=== PATIENT | female | born 1965 | race Caucasian/White ===

== ENCOUNTER 2023-05-12 04:47 | Emergency (ER) | payer OTHER, SELFPAY ==
[2023-05-12] VITALS (8 sets, daily range): BP systolic 135–196; BP diastolic 70–111; PULSE 75–87; RESP 14–22; TEMP 36.6–37.1; O2SAT 97–100; BMI 30.2
--- NOTE | 2023-05-12 | ECG_ITS ---
Test Reason : CP Blood Pressure : / mmHG Vent. Rate : 085 BPM Atrial Rate : 085 BPM P-R Int : 154 ms QRS Dur : 088 ms QT Int : 390 ms P-R-T Axes : 048 027 058 degrees QTc Int : 464 ms Normal sinus rhythm Normal ECG When compared with ECG of 07-JUN-2009 18:13, No significant change was found Referred By: Generic ED Physician Electronically Signed By:Daniel Moreno
--- NOTE | ~2023-05-12 | CT_ITS ---
EXAMINATION: CT ANGIOGRAM OF THE CHEST WITH AND WITHOUT CONTRAST (CT PULMONARY ANGIOGRAM FOR PE) CLINICAL INFORMATION: Reason for Exam chest pain COMPARISON: None available. TECHNIQUE: Prior to contrast administration, noncontrast localization images were obtained. Subsequently, multidetector volumetric imaging was performed from the thoracic inlet to below the diaphragms following the administration of 80 mL Omnipaque 350 intravenous contrast. No contrast reaction reported Sagittal, coronal, and MIP oblique sagittal reformatted images were obtained on the CT workstation, uploaded to PACS, and reviewed. This CT examination was performed using dose optimization techniques as appropriate, variously including the following: *Automated exposure control *Adjustment of mA and/or kV according to patient size (this includes techniques or standardized protocols for targeted exams where dose is matched to indication/reason for exam; i.e. extremities or head) *Use of iterative reconstruction technique Total exam dose-length product 123.9 mGy-cm FINDINGS: QUALITY OF STUDY/CONTRAST BOLUS: Satisfactory. PULMONARY ARTERIES: No central or segmental pulmonary emboli. THORACIC AORTA: No aneurysm. No aortic dissection or periaortic collection. Evaluation of the ascending aorta mildly limited due to motion artifact. LUNG: Mild volume loss and diffuse patchy opacities in the dependent portion of both lower lobes seen, most consistent with atelectasis. Subtle superimposed infectious infiltrate would be difficult to exclude but is felt to be less likely. No focal dense consolidation, nodules or masses. PLEURA: No pleural effusion or pneumothorax. MEDIASTINUM: Normal heart size. No pericardial effusion. No hilar or mediastinal lymphadenopathy. No evidence of septal bowing or right heart strain. CORONARY ARTERY CALCIFICATION: None visualized on this study. CHEST WALL/AXILLA: No axillary or internal mammary lymphadenopathy. OSSEOUS STRUCTURES: No acute or suspicious osseous abnormality. Small sclerotic bone island in the tip of the right scapula. Mild vertebral spondylosis in mid and lower thoracic spine. UPPER ABDOMEN: Unremarkable. No reflux of contrast into the hepatic veins to suggest elevated right heart pressures. CT/CT angio chest PE protocol IMPRESSION: * No evidence of pulmonary embolism. * Mild volume loss and diffuse patchy opacities in the dependent portion of both lower lobes, most consistent with atelectasis. Subtle superimposed infectious infiltrate would be difficult to exclude but is felt to be less likely. VTE: negative.
--- NOTE | ~2023-05-12 | XR_ITS ---
EXAMINATION: XR CHEST CLINICAL INFORMATION: Chest pain COMPARISON: 06/07/2009 TECHNIQUE: Frontal view of the chest was obtained. FINDINGS: Lung volumes are symmetric. No focal consolidation is seen. No evidence of pneumothorax, pleural effusion, or pulmonary edema. Cardiac size appears within normal limits. There is slightly increased prominence of the aortic arch compared to prior, which could be due to patient rotation. No acute osseous findings are seen. XR/XR chest 1V IMPRESSION: Slightly increased prominence of the aortic arch compared to prior, which could be accentuated due to patient rotation. Further assessment with a PA radiograph is recommended. No acute pulmonary findings.
[2023-05-12 05:37] LABS: Hematocrit 36.9 % (37.0-47.0); Hemoglobin 11.5 g/dl (12.0-16.0); Mean Corpuscular HGB Conc 31.2 g/dl (31.0-35.0); Mean Corpuscular Hemoglobin 24.7 pg (27.0-33.0); Mean Corpuscular Volume 79.2 fL (80.0-98.0); Platelet Count 168 X10*3/uL (160-400); Red Blood Count 4.66 X10*6/uL (4.20-5.50)
[2023-05-12 05:38] LABS: WBC ABN SCTR FOR CBC 1
[2023-05-12 05:39] LABS: White Blood Count 12.5 X10*3/uL (4.8-10.8)
[2023-05-12 05:50] LABS: Alanine Aminotransferase 14 U/L (0-31); Alkaline Phosphatase 116 U/L (39-117); Anion Gap 14 (12-20); Aspartate Amino Transferase 27 U/L (5-31); Bilirubin Total 0.2 mg/dL (0.0-1.0); Blood Urea Nitrogen 32 mg/dL (9-16); Calcium 9.5 mg/dL (8.4-10.2); Carbon Dioxide 19 mmol/L (22-29); Chloride 109 mmol/L (96-108); Creatinine Clr Calc Pharmacy 33.3; Estimated Glomerular Filt Rate 30; Glucose Random 106 mg/dL (60-115); Sodium 138 mmol/L (135-145); Total Protein 8.8 g/dL (6.5-8.0)
[2023-05-12 05:55] LABS: Troponin-I High Sensitivity 3.8 ng/L (<3.5-17.0)
[2023-05-12 06:09] LABS: Band Neutrophils Percent 1 % (3-5); Eosinophils Absolute Manual 0.1 X10*3/uL (0.0-0.4); Eosinophils Percent Manual 1 % (0-4); Lymphocytes Absolute Manual 2.5 X10*3/uL (1.2-4.9); Lymphocytes Percent Manual 20 % (20-40); Metamyelocytes Absolute 0.1 X10*3/uL; Metamyelocytes Percent 1 %; Monocytes Absolute Manual 0.9 X10*3/uL (0.1-1.2); Monocytes Percent Manual 7 % (2-11); Neutrophils Absolute Manual 8.9 X10*3/uL (2.0-8.3); Neutrophils Percent Manual 70 % (45-73)
[2023-05-12 06:10] LABS: Hypochromasia 2+ (15-30) /OIF; Large Platelet PRESENT; Platelet Estimate NORMAL (NORMAL); Platelet Morphology Comment NOTED; RBC Morphology NORMAL; Rouleau PRESENT; Target Cells 1+ (5-14) /OIF; Toxic Vacuolation PRESENT
--- NOTE | 2023-05-12 06:21 | ED.CHESTPAIN ---
HPI - Chest Pain General Chief Complaint: Chest Pain Stated Complaint: CP Time Seen by Provider: 05/12/23 06:32 Source: patient, family and RN notes reviewed Mode of arrival: ambulatory Limitations: no limitations History of Present Illness HPI narrative: This is a 57-year-old female, with a history of Sjogren's disease and hypertension, presenting to the emergency department with complaints of acute left-sided chest pain since 4:00 a.m. this morning. Patient states that she woke up this morning with left-sided chest pain that radiated to her jaw as well as her back. She states that the pain has been constant since feeling initially. She took 1 baby aspirin prior to arrival which provided her with some relief. She also endorses some mild shortness of breath. Pain worsens with deep inspiration. Denies any fevers, chills, cough, abdominal pain, nausea, vomiting or diarrhea. She was at a wedding last night and had spicy food. She denies any recent travel, surgeries, hospitalizations. No other complaints or concerns at this time. MD complaint: chest pain Onset (ago): hour(s) Timing of current episode: constant Prior episodes: No Onset: during rest Pain location: left chest Pain radiation: back and jaw/teeth Severity: moderate Quality: aching and heaviness Relieving factors: nothing Exacerbating factors: nothing Associated symptoms: dyspnea Treatment prior to arrival: aspirin Risk Factors Coronary artery disease risk factors: hypertension Thoracic aortic dissection risk factors: none Related Data On Oral Contraceptives: No Allergies Allergy/AdvReac Type Severity Reaction Status Date / Time No Known Allergies Allergy Verified 05/12/23 04:55 Review of Systems Review of Systems: Yes all other systems are reviewed and are negative Constitutional: Constitutional: Reports as per [facility] Past Medical History Attestation statement: The following information was validated with the patient. Social History Social History Smoked in Last 30 Days: No Use of substances other than those prescribed or required for medical reasons: No Advance Directives: No Advance Directives Information Provided: No Patient : No Physical Exam Vital Signs: Vital Signs: Last Vital Signs Temp 97.8 F 05/12/23 12:54 Pulse 76 05/12/23 12:54 Resp 16 05/12/23 12:54 BP 142/82 H 05/12/23 12:54 Pulse Ox 97 05/12/23 12:54 O2 Del Method Room Air 05/12/23 12:54 BMI result Body Mass Index 30.2 Const: General: cooperative, comfortable and no acute distress Orientation/consciousness: patient oriented x3 Limitations: no limitations HEENT: Head: Yes normal to inspection, Yes normocephalic and Yes atraumatic Ears: hearing grossly normal bilaterally General nose exam: Normal external nose present Face and sinus: Yes normal facial exam Mouth: Normal oral and palatal mucosa present, oropharynx normal and moist mucous membranes Throat: Yes posterior oropharynx normal Eyes: General: appearance normal, both eyes and all related structures Eyelids: Yes eyelids normal Conjunctivae: conjunctivae normal Sclerae: sclerae normal Pupils: Equal, round and reactive pupils present EOM: EOMs intact bilaterally Neck: Neck: Yes normal visual inspection, Yes full ROM and Yes no lymphadenopathy Lymphatic: no lymphadenopathy noted Chest: Chest palpation & inspection: normal inspection of the chest Resp: Effort & Inspection: normal respiratory effort and able to speak in complete sentences Auscultation: clear to auscultation bilaterally, no crackles, no rales, no rhonchi and no wheezes Cardio: Rate: regular rate Rhythm: regular rhythm Heart sounds: S1 normal heart sound present and S2 normal heart sound present GI: Inspection: Yes normal to inspection Skin: General skin exam: no rashes or lesions noted Trauma: no lacerations or abrasions Wounds: no wounds Neuro: General: patient oriented x3 and moves all extremities Cranial nerves: Yes Equal, round and reactive pupils present Extrem: General: Yes normal to inspection Right upper extremity: normal to inspection Left upper extremity: normal to inspection Right lower extremity: normal to inspection Left lower extremity: normal to inspection Course Reevaluation(s) Reevaluation #1: CTA returns revealing mild volume loss and diffuse patchy opacities in the dependent portion of both lower lobes, most consistent with atelectasis. Subtle superimposed infectious infiltrate be difficult to exclude but is felt to be less likely. Time: 10:04 Reevaluation #2: 2nd troponin returns, is flat. Given creatinine of 1.7. Patient also with CBC with differential with rouleaux, target cells. I discussed abnormal morphology with my attending physician, Dr. Colon. Recommending outpatient follow-up however will repeat bmp to ensure that creatinine is improving. I discussed workup with patient as well as daughter at bedside. Patient reports that she previously was told that she had abnormal findings in her red blood cell in the past approximately 15 years ago. She does not see a table runner at this point. Time: 11:06 Reevaluation #3: Creatinine improved to 1.35, GFR 40. This has since improved since patient has been given IV fluids. Discussed workup with patient, cardiac workup is unremarkable today. We will give referral to Nephrology as well as Hematology for follow-up. Discussed strict return precautions. Time: 12:38 Medications Administered Discontinued Medications Generic Name Dose Route Start Last Admin Trade Name Freanisha PRN Reason Stop Dose Admin Acetaminophen 650 mg 05/12/23 07:16 05/12/23 07:22 Acetaminophen 325 Mg Tablet PO 05/12/23 07:17 650 mg ONCE ONE Administration Sodium Chloride 1,000 mls @ 250 mls/hr 05/12/23 06:22 05/12/23 08:27 Ns IV 05/12/23 10:21 Infused .Q4H STA Infusion Iohexol 65 ml 05/12/23 08:39 05/12/23 08:40 Iohexol 350 Mg/Ml 100 Ml Infus..Btl IV 05/12/23 08:40 65 ml ONCE ONE Administration Losartan Potassium 50 mg 05/12/23 06:24 05/12/23 06:33 Losartan Potassium 50 Mg Tablet PO 05/12/23 06:25 50 mg ONCE ONE Administration Protocol Medical Decision Making Medical Decision Making MDM Narrative: This is a 57-year-old female presenting to the emergency department with complaints of left-sided chest pain which started at 4:00 a.m. this morning. She states that the left-sided chest pain radiates into her jaw and into her back. The pain woke her up from sleep. Upon my assessment, blood pressure has improved to 150 9/88. Patient is comfortable, in no acute distress. She does endorse some mild shortness of breath. CBC and chemistry as well as troponin EKG chest x-ray was ordered prior to my assessment. Patient has slight leukocytosis at 12.5, with a microcytic anemia she also has rouleaux, target cells, present. Chemistry revealing a creatinine of 1.74, with a BUN of 32. She is being medicated with IV fluids. Per daughter this has been worked up outpatient, and will be seeing a data consultant in the coming weeks. Chest x-ray unremarkable. I discussed this presentation with my attending physician, Dr. Barbour, and given findings, will order CTA of the chest to rule out PE/dissection. Patient does have an elevated creatinine of 1.74, she is currently being hydrated. Given circumstances may be life-threatening therefore a CTA is warranted. Differential Diagnosis Differential Diagnoses: The differential diagnosis associated with the presentation includes PE, dissection, ACS, pneumonia, URI, covid, penumothorax Admission/Observation Consideration of admission/observation: Escalation of care including admission/observation considered Patient would have been admitted to the hospital had her work up had any findings where hospital admission was appropriate and her clinical presentation warranted hospital admission. Lab Data MDM Lab Attestation statement: I reviewed the patient's lab results. Mild leukocytosis, Microcytic anemia noted with a H&H of 11.5/36.9, rouleaux formations, target cells present (see course), Creatinine 1.74 > improved to 1.35; GFR 30 > improved to 40. 05/12/23 05:25 05/12/23 11:14 Labs: Lab Results 05/12/23 05/12/23 05/12/23 Range/Units 05:25 07:03 09:22 WBC 12.5 H (4.8-10.8) X10*3/uL RBC 4.66 (4.20-5.50) X10*6/uL Hgb 11.5 L (12.0-16.0) g/dl Hct 36.9 L (37.0-47.0) % MCV 79.2 L (80.0-98.0) fL MCH 24.7 L (27.0-33.0) pg MCHC 31.2 (31.0-35.0) g/dl RDW 16.0 (11.0-16.0) % Plt Count 168 (160-400) X10*3/uL MPV Not Reportable Immature Gran % (Auto) Cancelled Neut % (Auto) Cancelled Lymph % (Auto) Cancelled [place] % (Auto) Cancelled Eos % (Auto) Cancelled Baso % (Auto) Cancelled Lymph # (Auto) Cancelled [place] # (Auto) Cancelled Eos # (Auto) Cancelled Baso # (Auto) Cancelled Abs Immat Gran (auto) Cancelled Absolute Neuts (auto) Cancelled Absolute Nucleated RBC 0.000 (0.0-0.012) X10*3/uL Nucleated RBC % (auto) 0.0 (0.0-0.2) /100WBC Neutrophils % (Manual) 70 (45-73) % Band Neutrophils % 1 L (3-5) % Lymphocytes % (Manual) 20 (20-40) % Monocytes % (Manual) 7 (2-11) % Eosinophils % (Manual) 1 (0-4) % Metamyelocytes % 1 % Abs Neuts (Manual) 8.9 H (2.0-8.3) X10*3/uL Lymphocytes # (Manual) 2.5 (1.2-4.9) X10*3/uL Monocytes # (Manual) 0.9 (0.1-1.2) X10*3/uL Eosinophils # (Manual) 0.1 (0.0-0.4) X10*3/uL Metamyelocytes # 0.1 X10*3/uL Toxic Vacuolation PRESENT Platelet Estimate NORMAL (NORMAL) Large Platelets PRESENT Plt Morphology Comment NOTED RBC Morphology NORMAL Hypochromasia 2+ (15-30) /OIF Target Cells 1+ (5-14) /OIF Rouleaux PRESENT Sodium 138 (135-145) mmol/L Potassium 4.0 (3.3-5.1) mmol/L Chloride 109 H (96-108) mmol/L Carbon Dioxide 19 L (22-29) mmol/L Anion Gap 14 (12-20) BUN 32 H (9-16) mg/dL Creatinine 1.74 H (0.5-1.4) mg/dL Estim Creat Clear Calc 33.3 Estimated GFR 30 Random Glucose 106 (60-115) mg/dL Calcium 9.5 (8.4-10.2) mg/dL Total Bilirubin 0.2 (0.0-1.0) mg/dL AST 27 (5-31) U/L ALT 14 (0-31) U/L Alkaline Phosphatase 116 (39-117) U/L Troponin I High Sens 3.8 4.9 (<3.5-17.0) ng/L B-Natriuretic Peptide 25 (<100) pg/mL Total Protein 8.8 H (6.5-8.0) g/dL Albumin 4.0 (3.5-5.0) g/dL COVID-19 (JAYRO) Negative (Negative) COVID-19 Clin Com See Note Influenza Type A (CESAR) Negative (Negative) Influenza Type B (CESAR) Negative (Negative) Influenza A & B Note See Note 05/12/23 Range/Units 11:14 WBC (4.8-10.8) X10*3/uL RBC (4.20-5.50) X10*6/uL Hgb (12.0-16.0) g/dl Hct (37.0-47.0) % MCV (80.0-98.0) fL MCH (27.0-33.0) pg MCHC (31.0-35.0) g/dl RDW (11.0-16.0) % Plt Count (160-400) X10*3/uL MPV Immature Gran % (Auto) Neut % (Auto) Lymph % (Auto) [place] % (Auto) Eos % (Auto) Baso % (Auto) Lymph # (Auto) [place] # (Auto) Eos # (Auto) Baso # (Auto) Abs Immat Gran (auto) Absolute Neuts (auto) Absolute Nucleated RBC (0.0-0.012) X10*3/uL Nucleated RBC % (auto) (0.0-0.2) /100WBC Neutrophils % (Manual) (45-73) % Band Neutrophils % (3-5) % Lymphocytes % (Manual) (20-40) % Monocytes % (Manual) (2-11) % Eosinophils % (Manual) (0-4) % Metamyelocytes % % Abs Neuts (Manual) (2.0-8.3) X10*3/uL Lymphocytes # (Manual) (1.2-4.9) X10*3/uL Monocytes # (Manual) (0.1-1.2) X10*3/uL Eosinophils # (Manual) (0.0-0.4) X10*3/uL Metamyelocytes # X10*3/uL Toxic Vacuolation Platelet Estimate (NORMAL) Large Platelets Plt Morphology Comment RBC Morphology Hypochromasia /OIF Target Cells /OIF Rouleaux Sodium 141 (135-145) mmol/L Potassium 3.7 (3.3-5.1) mmol/L Chloride 112 H (96-108) mmol/L Carbon Dioxide 20 L (22-29) mmol/L Anion Gap 13 (12-20) BUN 25 H (9-16) mg/dL Creatinine 1.35 (0.5-1.4) mg/dL Estim Creat Clear Calc 43.0 Estimated GFR 40 Random Glucose 101 (60-115) mg/dL Calcium 9.0 (8.4-10.2) mg/dL Total Bilirubin (0.0-1.0) mg/dL AST (5-31) U/L ALT (0-31) U/L Alkaline Phosphatase (39-117) U/L Troponin I High Sens (<3.5-17.0) ng/L B-Natriuretic Peptide (<100) pg/mL Total Protein (6.5-8.0) g/dL Albumin (3.5-5.0) g/dL COVID-19 (JAYRO) (Negative) COVID-19 Clin Com Influenza Type A (CESAR) (Negative) Influenza Type B (CESAR) (Negative) Influenza A & B Note Independent Interpretation I performed an independent interpretation of an: EKG Interpretation: EKG normal sinus rhythm at a ventricular rate of 85 beats per minute, no ST elevation or depression, IL interval 154, QTC 464 Radiology Impression Discussion of test interpretation with radiology: I have reviewed the radiologist's reading. Radiologist Impression: EXAMINATION: XR CHEST CLINICAL INFORMATION: Chest pain COMPARISON: 06/07/2009 TECHNIQUE: Frontal view of the chest was obtained. FINDINGS: Lung volumes are symmetric. No focal consolidation is seen. No evidence of pneumothorax, pleural effusion, or pulmonary edema. Cardiac size appears within normal limits. There is slightly increased prominence of the aortic arch compared to prior, which could be due to patient rotation. No acute osseous findings are seen. XR/XR chest 1V IMPRESSION: Slightly increased prominence of the aortic arch compared to prior, which could be accentuated due to patient rotation. Further assessment with a PA radiograph is recommended. No acute pulmonary findings. Dictated By: Chapincito Lozano MD Independent Historian Clinical information obtained from an independent historian. History obtained from or confirmed by: Other (Daughter at bedside) Chronic Conditions Patient?s care impacted by: Hypertension Scores Heart Score History: -1- moderately suspicious ECG: -0- normal Age: -1- >45 - <65 Risk factory: -1- 1 or 2 risk factors Troponin: -0- < or = normal limit Score: 3 Risk: 1.7% Critical Care Time Critical Care Time Critical Care Time: Yes Total Critical Care Time: 35 Attestation: I have personally provided critical care time exclusive of time spent on separately billable procedures. Time includes review of lab data, radiology results, discussion with consultants, and monitoring for potential decompensation. Intervention performed as documented. Discharge Plan Discharge Clinical Impression: Atypical chest pain Patient Disposition: Home, Self-Care Instructions: Chest Pain (ED) Additional Instructions: You were seen in the emergency department after having chest pain. It is unclear what is causing you to have this chest pain however workup today was reassuring. Your EKG was reassuring. Your blood work was also reassuring. Your kidney function improved after receiving IV fluids however you still need to follow-up with your data consultant. I advised you to call them tomorrow for follow-up. You also had abnormality seen on your CBC, I am recommending you follow-up with a table runner, call tomorrow to make an appointment. You tested negative for COVID and flu today. Your CTA did not show any abnormalities. If any new or worsening symptoms occur including but not limited to worsening chest pain, shortness for breath, please immediately return for re-evaluation. [facility] Nephrology [address] [place] [address] [phone] [facility] [phone] You may also follow-up with Cardiology for outpatient cardiac studies. Call to make an appointment Referrals: [facility] [place] Cardiovascular Services [Provider Group] [facility] Oncology/Hematology [Provider Group] Interventions: ED Discharge Assessment Last Done: 05/12/23 13:03 Discharge Date/Time: 05/12/23 13:29
[2023-05-12] MEDS: Losartan Potassium 50 MG TABLET PO (06:33)
[2023-05-12] MEDS: 0.9 % Sodium Chloride 1,000 ML 250 ML IV (06:33)
[2023-05-12] MEDS: Acetaminophen 325 MG TABLET 650 MG PO (07:22)
[2023-05-12 07:26] LABS: COVID-19 Test Negative (Negative); IDNOW Serial# 08D9AD1C
[2023-05-12 07:27] LABS: IDNOW Serial# 152EDE1D; Influenza A Negative (Negative); Influenza B2 Negative (Negative)
--- NOTE | 2023-05-12 07:29 | PC.NURSE ---
Pt awake, alert and oriented. Breathing even and unlabored. Skin warm and dry. Pt requesting tylenol for chest pain, pt medicated per the MAR. NS infusing 1L bolus per provider. Pt reports chest pain is intermittent, 5/10, across her chest to her jaw. No acute resp distress noted.
[2023-05-12 07:33] LABS: B Type Natriuretic Peptide 25 pg/mL (<100)
--- NOTE | 2023-05-12 08:27 | PC.NURSE ---
Pt reports pain has improved with Tylenol, reports feeling overall better. Pt resting in bed. Pt taken to CT at this time.
[2023-05-12] MEDS: iohexoL 350 MG/ML 100 ML INFUS..BTL 65 ML IV (08:40)
[2023-05-12 09:50] LABS: Troponin-I High Sensitivity 4.9 ng/L (<3.5-17.0)
[2023-05-12 12:08] LABS: Anion Gap 13 (12-20); Blood Urea Nitrogen 25 mg/dL (9-16); Carbon Dioxide 20 mmol/L (22-29); Chloride 112 mmol/L (96-108); Estimated Glomerular Filt Rate 40; Glucose Random 101 mg/dL (60-115); Potassium 3.7 mmol/L (3.3-5.1); Sodium 141 mmol/L (135-145)
== END 2023-05-12 13:29 | disposition home or self-care (01) ==
PROVIDERS: Physician Assistant Medical; Emergency Provider Emergency Medicine Emergency Medical Services
DX: R07.89 Other chest pain (principal); R06.02 Shortness of breath; Z11.52 Encounter for screening for COVID-19; Z79.899 Other long term (current) drug therapy
CPT/HCPCS: 36415; 71045; 71275; 80048; 80053; 83880; 84484; 85007; 85027; 87502; 87635; 93005; 96360; 96361; 99284; 99285; Q9967

== ENCOUNTER → 2023-05-12 04:51 | Outpatient (BNV) | payer OTHER, SELFPAY | PROVIDERS: Emergency Provider Emergency Medicine Emergency Medical Services; Visit Provider Internal Medicine Cardiovascular Disease | DX: R07.9 Chest pain, unspecified (principal) | CPT/HCPCS: 93010 ==